=== PATIENT | female | born 1970 | race Caucasian/White ===

== ENCOUNTER 2018-01-19 19:41 | Emergency (ER) | payer MEDICAID ==
[~2018-01-19] VITALS: Ht 154.9 cm; Wt 70.3 kg
[~2018-01-19 19:41] MED LIST: VIC PO
[2018-01-19 19:44] VITALS: BP 189/107
--- NOTE | 2018-01-19 19:49 | NUR ---
patient presents to ed with R axillary abcess x2days. 4cmX4.5cm, redness, edema, heat present. Green papulae head. Copious spntanues serous drainage. 10/10 pain. A&Ox4, VSS, positioned in bed for comfort. ED MD notified of PT condition. continue to monitor
--- NOTE | 2018-01-19 19:49 | NUR ---
PT TAKEN TO BED 9
[2018-01-19] MEDS ORDERED: LIDOCAINE/PRILOCAINE 2.5% 5 GM TUBE TP ONE (20:45)
[2018-01-19] MEDS ORDERED: IBUPROFEN 600 MG TAB PO ONE (20:50)
[2018-01-19] MEDS ORDERED: LIDOCAINE/EPI 1% 1:100000 20 ML VIAL INJ ONE (22:15)
[2018-01-19] MEDS ORDERED: LIDOCAINE/EPI 2% 1:100000 20 ML VIAL INJ ONE (22:21)
[2018-01-19] MEDS ORDERED: fentaNYL 0.05 MG/ML VIAL NS ONE (22:25)
[2018-01-19] MEDS ORDERED: SULFAMETH/TRIMETH DS 800/160MG 1 TAB PO ONE (22:55)
[2018-01-19 23:20] VITALS: BP 167/90
--- NOTE | 2018-01-19 23:20 | NUR ---
Patient discharged with v/s stable. Written and verbal after care instructions given and explained. Patient alert, oriented and verbalized understanding of instructions. Ambulatory* with steady gait. All questions addressed prior to discharge. ID band removed. Patient advised to follow up with PMD. Rx of NAPROSYN, NORCO, AND BACTRIM given. Patient educated on indication of medication including possible reaction and side effects. Opportunity to ask questions provided and answered.
== END 2018-01-19 23:20 | disposition home or self-care (01) ==
LOC: MED 19:41
DX: L02.411 Cutaneous abscess of right axilla (principal); Z88.6 Allergy status to analgesic agent; Z88.5 Allergy status to narcotic agent; Z88.1 Allergy status to other antibiotic agents; Z79.899 Other long term (current) drug therapy
CPT/HCPCS: 10060; 99284; J2001; J3010

== ENCOUNTER 2018-01-21 20:58 | Inpatient (IN) | payer MEDICAID ==
[~2018-01-21] VITALS: Ht 154.9 cm; Wt 68.0 kg
[2018-01-21 21:10] VITALS: BP 176/110
[2018-01-21] MEDS ORDERED: NACL 0.9% 1,000 ML IV ONE (22:03)
[2018-01-21] MEDS ORDERED: ONDANSETRON 4 MG/2 ML VIAL IVP ONE (22:05)
[2018-01-21] MEDS ORDERED: fentaNYL 0.05 MG/ML VIAL IVP ONE (22:05)
[2018-01-21] MEDS ORDERED: KETOROLAC 30 MG/ML VIAL IVP ONE (22:05)
[2018-01-21] MEDS ORDERED: CLINDAMYCIN 600 MG in DEXTROSE 5% 50 ML IV ONE (22:05)
[2018-01-21] MEDS ORDERED: CLINDAMYCIN 600 MG/4 ML VIAL ONE (22:15)
[2018-01-21 22:40] LABS: BASOPHILS # (AUTO) 0.1 K/uL (0.00-0.22); BASOPHILS % (AUTO) 0.9 % (0.0-2.0); EOSINOPHILS # (AUTO) 0.2 K/uL (0-0.4); EOSINOPHILS % (AUTO) 2.8 % (0.0-4.0); HEMATOCRIT 30.7 % (36-48); HEMOGLOBIN 9.4 g/dL (12.0-16.0); LYMPHOCYTES # (AUTO) 1.8 K/uL (2.5-16.5); LYMPHOCYTES % (AUTO) 22.8 % (20.5-51.1); MEAN CORPUSCULAR HEMOGLOBIN 20 pg (27-31); MEAN CORPUSCULAR HGB CONC 31 g/dL (33-37); MEAN CORPUSCULAR VOLUME 66.2 fL (80-94); MONOCYTES # (AUTO) 0.6 K/uL (0.8-1.0); MONOCYTES % (AUTO) 7.2 % (1.7-9.3); NEUTROPHILS # (AUTO) 5.1 K/uL (1.8-7.7); NEUTROPHILS % (AUTO) 66.3 % (42.2-75.2); PLATELET COUNT (AUTO) 402 K/uL (140-450); RED BLOOD CELL COUNT(AUTO) 4.64 MIL/uL (4.20-5.40); RED CELL DISTRIBUTION WIDTH 17.1 % (11.6-13.7); WHITE BLOOD COUNT (AUTO) 7.7 K/uL (4.8-10.8)
[2018-01-21 22:59] LABS: ANION GAP 12.7 (8-16); CARBON DIOXIDE 28.5 mmol/L (21-32); CREATININE 0.8 mg/dL (0.6-1.3); POTASSIUM 3.2 mmol/L (3.5-5.1)
[2018-01-21 23:05] LABS: ALBUMIN 3.4 g/dL (3.4-5.0); TOTAL BILIRUBIN 0.2 mg/dL (0.0-1.0)
[2018-01-22] VITALS (8 sets, daily range): BP systolic 101–155; BP diastolic 63–90
[2018-01-22] MEDS ORDERED: LORazepam 2 MG/ML VIAL IM/IVP PRN (00:40)
[2018-01-22] MEDS ORDERED: DOCUSATE SODIUM 100 MG GELCAP PO PRN (00:40)
[2018-01-22] MEDS ORDERED: POTASSIUM CHLORIDE 40 MEQ, LIDOCAINE MPF 1% - 5 mL VIAL 25 MG in NACL 0.9% 250 ML IV ONE (00:40)
[2018-01-22] MEDS ORDERED: ZOLPIDEM 5 MG TAB PO PRN (00:40)
[2018-01-22] MEDS ORDERED: ONDANSETRON 4 MG/2 ML VIAL IM/IVP PRN (00:40)
[2018-01-22] MEDS ORDERED: KETOROLAC 30 MG/ML VIAL IVP PRN ×2 (00:40→22:05)
[2018-01-22 01:54] LABS: BILIRUBIN,URINE NEGATIVE (NEGATIVE); BLOOD, URINE NEGATIVE (NEGATIVE); COLOR,URINE YELLOW (YELLOW); LEUKOCYTE ESTERASE ,URINE NEGATIVE (NEGATIVE); NITRITE, URINE NEGATIVE (NEGATIVE); UGLUCOSE NEGATIVE (NEGATIVE)
[2018-01-22 01:58] LABS: CHOL/HDL RATIO 5.1 (1-4.5); MAGNESIUM 1.8 mg/dL (1.8-2.4); PHOSPHORUS 3.3 mg/dL (2.5-4.9); THYROID STIMULATING HORMONE 2.88 uIU/mL (0.34-3.74)
[2018-01-22 01:59] LABS: BARBITURATE, URINE NEG. ng/ml (NEG <=200); BENZODIAZEPINE, URINE NEG. ng/mL (NEG <=200); CANNABINOID, URINE NEG. ng/mL (NEG <=50); COCAINE, URINE NEG. ng/mL (NEG <=300); OPIATE, URINE NEG. ng/mL (NEG <=2000); PHENCYCLIDINE SCREEN,URINE NEG. ng/mL (NEG <=25)
[2018-01-22] MEDS ORDERED: KCL IV SCH (02:00)
[2018-01-22] MEDS ORDERED: WATER IV SCH (02:00)
[2018-01-22 02:01] LABS: APPEARANCE,URINE SLIGHTLY HAZY (CLEAR)
[2018-01-22 02:02] LABS: RBC,URINE 0-5 (RARE) /HPF (0-5); WBC,URINE 0-5 (RARE) /HPF (0-5)
[2018-01-22 02:05] LABS: PROTHROMBIN TIME 9.9 secs (10.8-13.4)
[2018-01-22] MEDS: NACL 0.9% 1,000 ML IV SCH ×2 (02:49→19:35)
[2018-01-22] MEDS ORDERED: CLINDAMYCIN 600 MG/4 ML VIAL ONE (05:55)
[2018-01-22] MEDS ORDERED: CLINDAMYCIN 600 MG in DEXTROSE 5% 50 ML IV SCH (06:00)
[2018-01-22 07:07] LABS: BASOPHILS % (AUTO) 0.3 % (0.0-2.0); EOSINOPHILS # (AUTO) 0.2 K/uL (0-0.4); EOSINOPHILS % (AUTO) 2.5 % (0.0-4.0); HEMATOCRIT 28.1 % (36-48); HEMOGLOBIN 8.6 g/dL (12.0-16.0); LYMPHOCYTES # (AUTO) 1.6 K/uL (2.5-16.5); LYMPHOCYTES % (AUTO) 21.8 % (20.5-51.1); MEAN CORPUSCULAR HEMOGLOBIN 20 pg (27-31); MEAN CORPUSCULAR HGB CONC 31 g/dL (33-37); MONOCYTES # (AUTO) 0.5 K/uL (0.8-1.0); MONOCYTES % (AUTO) 6.9 % (1.7-9.3); NEUTROPHILS % (AUTO) 68.5 % (42.2-75.2); PLATELET COUNT (AUTO) 336 K/uL (140-450); RED BLOOD CELL COUNT(AUTO) 4.26 MIL/uL (4.20-5.40); WHITE BLOOD COUNT (AUTO) 7.3 K/uL (4.8-10.8)
[2018-01-22 07:22] LABS: ANION GAP 11.8 (8-16); CARBON DIOXIDE 26.9 mmol/L (21-32); CREATININE 0.7 mg/dL (0.6-1.3); POTASSIUM 3.7 mmol/L (3.5-5.1)
[2018-01-22 07:28] LABS: MAGNESIUM 1.7 mg/dL (1.8-2.4); PHOSPHORUS 3.2 mg/dL (2.5-4.9)
[2018-01-22] MEDS: FERROUS SULFATE 325 MG TABEC PO SCH (08:36)
[2018-01-22] MEDS: ASCORBIC ACID 500 MG TAB PO SCH (08:36)
[2018-01-22] MEDS: LISINOPRIL 5 MG TAB PO SCH (08:36)
[2018-01-22] MEDS: LACTOBACILLUS RHAMNOSUS GG 1 EACH CAP PO SCH (08:37)
[2018-01-22] MEDS: CLINDAMYCIN PHOS 600MG/D5W PM 50 ML IV SCH ×3 (12:49→23:37)
[2018-01-22] MEDS ORDERED: MAGNESIUM OXIDE 400 MG TAB GT SCH (16:00)
[2018-01-22] MEDS ORDERED: LIDOCAINE/EPI MPF 1%1:200000 30 ML VIAL INJ ONE ×2 (16:58→21:28)
[2018-01-22] MEDS ORDERED: BUPIVACAINE-MPF 0.25% 30 ML VIAL INJ ONE (16:58)
[2018-01-22] MEDS ORDERED: BUPIVACAINE-MPF/EPI 0.25% 30 ML VIAL INJ ONE (21:28)
[2018-01-22] MEDS ORDERED: PROPOFOL 200 MG/20 ML VIAL IV ONE (21:52)
[2018-01-22] MEDS ORDERED: ONDANSETRON 4 MG/2 ML VIAL ONE (21:52)
[2018-01-22] MEDS ORDERED: MIDAZOLAM 2 MG/2 ML VIAL ONE (22:01)
[2018-01-22] MEDS ORDERED: fentaNYL 0.05 MG/ML VIAL ONE (22:01)
[2018-01-22] MEDS ORDERED: HYDROcodone/APAP 5/325 MG 1 TAB TAB PO PRN (22:35)
[2018-01-22] MEDS ORDERED: ONDANSETRON 4 MG/2 ML VIAL IV PRN (22:35)
[2018-01-22] MEDS: HYDROmorphone 1 MG/ML AMP IVP PRN (23:19)
[2018-01-23 00:05] VITALS: BP 109/64
[2018-01-23 01:05] VITALS: BP 123/73
[2018-01-23 03:56] VITALS: BP 120/67
[2018-01-23] MEDS: CLINDAMYCIN PHOS 600MG/D5W PM 50 ML IV SCH ×4 (05:25→23:47)
[2018-01-23] MEDS: HYDROmorphone 1 MG/ML AMP IVP PRN ×3 (06:35→23:49)
[2018-01-23 08:00] VITALS: BP 114/63
[2018-01-23] MEDS: FERROUS SULFATE 325 MG TABEC PO SCH (08:11)
[2018-01-23] MEDS: LACTOBACILLUS RHAMNOSUS GG 1 EACH CAP PO SCH (08:12)
[2018-01-23] MEDS: LISINOPRIL 5 MG TAB PO SCH (08:12)
[2018-01-23] MEDS: ASCORBIC ACID 500 MG TAB PO SCH (08:12)
[2018-01-23 08:13] LABS: BASOPHILS % (AUTO) 0.1 % (0.0-2.0); EOSINOPHILS # (AUTO) 0.1 K/uL (0-0.4); EOSINOPHILS % (AUTO) 2.4 % (0.0-4.0); HEMATOCRIT 29.1 % (36-48); HEMOGLOBIN 8.9 g/dL (12.0-16.0); LYMPHOCYTES # (AUTO) 1.6 K/uL (2.5-16.5); MEAN CORPUSCULAR HEMOGLOBIN 21 pg (27-31); MEAN CORPUSCULAR HGB CONC 31 g/dL (33-37); MEAN CORPUSCULAR VOLUME 66.8 fL (80-94); MONOCYTES # (AUTO) 0.2 K/uL (0.8-1.0); MONOCYTES % (AUTO) 4.7 % (1.7-9.3); PLATELET COUNT (AUTO) 329 K/uL (140-450); RED BLOOD CELL COUNT(AUTO) 4.35 MIL/uL (4.20-5.40); RED CELL DISTRIBUTION WIDTH 17.2 % (11.6-13.7); WHITE BLOOD COUNT (AUTO) 4.9 K/uL (4.8-10.8)
[2018-01-23 08:45] LABS: CARBON DIOXIDE 28.6 mmol/L (21-32); CREATININE 0.8 mg/dL (0.6-1.3); POTASSIUM 3.6 mmol/L (3.5-5.1)
[2018-01-23 08:57] LABS: MAGNESIUM 1.9 mg/dL (1.8-2.4); PHOSPHORUS 3.1 mg/dL (2.5-4.9)
[2018-01-23 09:10] LABS: NEUTROPHILS % (AUTO) 61.3 % (42.2-75.2)
[2018-01-23 09:11] LABS: LYMPHOCYTES % (AUTO) 31.5 % (20.5-51.1)
[2018-01-23] MEDS: NACL 0.9% 1,000 ML IV SCH (10:38)
[2018-01-23] MEDS: MORPHINE SULFATE 4 MG/ML SYR IV PRN ×2 (11:52→16:43)
[2018-01-23] MEDS ORDERED: MORPHINE SULFATE 2 MG/ML SYR IVP SCH (12:00)
[2018-01-23 16:00] VITALS: BP 122/50
[2018-01-23 23:45] VITALS: BP 131/71
[2018-01-24] MEDS: NACL 0.9% 1,000 ML IV SCH ×2 (03:00→05:50)
[2018-01-24] MEDS: MORPHINE SULFATE 4 MG/ML SYR IV PRN ×2 (04:25→11:05)
[2018-01-24] MEDS: CLINDAMYCIN PHOS 600MG/D5W PM 50 ML IV SCH ×4 (05:51→23:42)
[2018-01-24 07:13] LABS: BASOPHILS % (AUTO) 0.2 % (0.0-2.0); EOSINOPHILS # (AUTO) 0.1 K/uL (0-0.4); EOSINOPHILS % (AUTO) 2.5 % (0.0-4.0); HEMATOCRIT 29.1 % (36-48); LYMPHOCYTES # (AUTO) 1.8 K/uL (2.5-16.5); LYMPHOCYTES % (AUTO) 35.5 % (20.5-51.1); MEAN CORPUSCULAR HEMOGLOBIN 21 pg (27-31); MEAN CORPUSCULAR HGB CONC 31 g/dL (33-37); MEAN CORPUSCULAR VOLUME 67.1 fL (80-94); MONOCYTES # (AUTO) 0.3 K/uL (0.8-1.0); MONOCYTES % (AUTO) 5.3 % (1.7-9.3); NEUTROPHILS # (AUTO) 2.8 K/uL (1.8-7.7); NEUTROPHILS % (AUTO) 56.5 % (42.2-75.2); PLATELET COUNT (AUTO) 302 K/uL (140-450); RED BLOOD CELL COUNT(AUTO) 4.34 MIL/uL (4.20-5.40); RED CELL DISTRIBUTION WIDTH 17.4 % (11.6-13.7)
[2018-01-24] MEDS ORDERED: VANCOMYCIN PER PHARMACY MC PRN ×2 (07:25→10:25)
[2018-01-24 07:40] LABS: CARBON DIOXIDE 28.4 mmol/L (21-32); CREATININE 0.7 mg/dL (0.6-1.3); POTASSIUM 3.4 mmol/L (3.5-5.1)
[2018-01-24 07:48] LABS: MAGNESIUM 1.8 mg/dL (1.8-2.4); PHOSPHORUS 3.4 mg/dL (2.5-4.9)
[2018-01-24 08:00] VITALS: BP 147/85
[2018-01-24] MEDS: HYDROmorphone 1 MG/ML AMP IVP PRN (08:33)
[2018-01-24] MEDS: FERROUS SULFATE 325 MG TABEC PO SCH (08:39)
[2018-01-24] MEDS: ASCORBIC ACID 500 MG TAB PO SCH (08:39)
[2018-01-24] MEDS: LACTOBACILLUS RHAMNOSUS GG 1 EACH CAP PO SCH (08:39)
[2018-01-24] MEDS: LISINOPRIL 5 MG TAB PO SCH (08:39)
[2018-01-24] MEDS: VANCOMYCIN 1GM/DEXT 5% PREMIX 200 ML IV SCH ×2 (08:51→20:42)
[2018-01-24] MEDS ORDERED: POTASSIUM CHLORIDE 20% 40 MEQ/15 ML UDC PO SCH (11:00)
[2018-01-24] MEDS: HYDROcodone/APAP 10/325 MG 1 TAB TAB PO SCH ×4 (12:29→23:14)
[2018-01-24 16:00] VITALS: BP 151/87
[2018-01-25] VITALS: BP 152/82
[2018-01-25] MEDS: HYDROcodone/APAP 10/325 MG 1 TAB TAB PO SCH ×2 (04:04→08:53)
[2018-01-25] MEDS: CLINDAMYCIN PHOS 600MG/D5W PM 50 ML IV SCH ×3 (05:30→18:30)
[2018-01-25 06:59] LABS: BASOPHILS % (AUTO) 0.4 % (0.0-2.0); EOSINOPHILS # (AUTO) 0.2 K/uL (0-0.4); EOSINOPHILS % (AUTO) 3.1 % (0.0-4.0); HEMATOCRIT 29.6 % (36-48); HEMOGLOBIN 9.1 g/dL (12.0-16.0); LYMPHOCYTES # (AUTO) 1.7 K/uL (2.5-16.5); LYMPHOCYTES % (AUTO) 28.5 % (20.5-51.1); MEAN CORPUSCULAR HEMOGLOBIN 21 pg (27-31); MEAN CORPUSCULAR HGB CONC 31 g/dL (33-37); MONOCYTES # (AUTO) 0.4 K/uL (0.8-1.0); NEUTROPHILS # (AUTO) 3.7 K/uL (1.8-7.7); PLATELET COUNT (AUTO) 334 K/uL (140-450); RED BLOOD CELL COUNT(AUTO) 4.42 MIL/uL (4.20-5.40); RED CELL DISTRIBUTION WIDTH 17.5 % (11.6-13.7); WHITE BLOOD COUNT (AUTO) 5.9 K/uL (4.8-10.8)
[2018-01-25 07:09] LABS: ANION GAP 7.8 (8-16); CARBON DIOXIDE 29.8 mmol/L (21-32); CREATININE 0.7 mg/dL (0.6-1.3); POTASSIUM 3.6 mmol/L (3.5-5.1)
[2018-01-25 07:17] LABS: MAGNESIUM 1.6 mg/dL (1.8-2.4); PHOSPHORUS 3.4 mg/dL (2.5-4.9)
[2018-01-25 08:00] VITALS: BP 157/86
[2018-01-25] MEDS ORDERED: LACT10CA1 PO (08:45)
[2018-01-25] MEDS ORDERED: DOCU-299 PO (08:45)
[2018-01-25] MEDS ORDERED: ACET-5629 PO (08:45)
[2018-01-25] MEDS ORDERED: CLIN300C2 PO (08:45)
[2018-01-25] MEDS: LACTOBACILLUS RHAMNOSUS GG 1 EACH CAP PO SCH (08:52)
[2018-01-25] MEDS: LISINOPRIL 5 MG TAB PO SCH (08:52)
[2018-01-25] MEDS: FERROUS SULFATE 325 MG TABEC PO SCH (08:53)
[2018-01-25] MEDS: ASCORBIC ACID 500 MG TAB PO SCH (08:53)
[2018-01-25] MEDS: VANCOMYCIN 1GM/DEXT 5% PREMIX 200 ML IV SCH (08:54)
[2018-01-25] MEDS ORDERED: MAGNESIUM OXIDE 400 MG TAB PO SCH (10:00)
[2018-01-25] MEDS: NACL 0.9% 1,000 ML IV SCH (12:20)
[2018-01-25] MEDS ORDERED: SKINTEGRITY HYDROGEL TP SCH (15:00)
[2018-01-25] MEDS ORDERED: MORPHINE SULFATE 2 MG/ML SYR IVP SCH (15:00)
[2018-01-25 16:00] VITALS: BP 145/82
== END 2018-01-25 20:10 | disposition home health service (06) | DRG 383 ==
LOC: MED 20:58 → MTU 01-22 00:40
PROVIDERS: ADMIT General Practice; ATTEND General Practice
PROC: 0JBD0ZZ Excision of Right Upper Arm Subcutaneous Tissue and Fascia, Open Approach (ICD-10-PCS; 2018-01-22)
PROC: 0H9T0ZZ Drainage of Right Breast, Open Approach (ICD-10-PCS; principal; 2018-01-22 16:30)
DX: L02.411 Cutaneous abscess of right axilla (principal); E83.42 Hypomagnesemia; E83.51 Hypocalcemia; F12.90 Cannabis use, unspecified, uncomplicated; D50.9 Iron deficiency anemia, unspecified; E66.9 Obesity, unspecified; L03.111 Cellulitis of right axilla; N61.1 Abscess of the breast and nipple; E87.6 Hypokalemia; I10 Essential (primary) hypertension; E78.1 Pure hyperglyceridemia; G40.909 Epilepsy, unspecified, not intractable, without status epilepticus; F15.10 Other stimulant abuse, uncomplicated; J45.909 Unspecified asthma, uncomplicated; Z68.28 Body mass index [BMI] 28.0-28.9, adult; Z71.3 Dietary counseling and surveillance; Z88.6 Allergy status to analgesic agent; Z88.0 Allergy status to penicillin; Z86.73 Personal history of transient ischemic attack (TIA), and cerebral infarction without residual deficits; Z98.51 Tubal ligation status
CPT/HCPCS: 36415; 71045; 76881; 80048; 80053; 80202; 80305; 81001; 81025; 82607; 82728; 82746; 83036; 83540; 83605; 83690; 83735; 84100; 84134; 84443; 84703; 85025; 85045; 85610; 85730; 87070; 87075; 87081; 87186; 87205; 96365; 96375; 99285; A6248; J1170; J1644; J1885; J2001; J2250; J2270; J2405; J2704; J3010; J3370; J3480; J3490; J7030; J7060; Q0092

== ENCOUNTER 2018-01-27 20:56 | Emergency (ER) | payer MEDICAID ==
[~2018-01-27] VITALS: Ht 154.9 cm; Wt 68.0 kg
[~2018-01-27 20:56] MED LIST changes: +ACET-5629 PO; +CLIN300C2 PO; +DOCU-299 PO; +LACT10CA1 PO; -VIC PO
[2018-01-27 21:00] VITALS: BP 178/101
[2018-01-27 23:35] VITALS: BP 167/94
== END 2018-01-27 23:35 | disposition home or self-care (01) ==
LOC: MED 20:56
DX: Z48.01 Encounter for change or removal of surgical wound dressing (principal); E11.9 Type 2 diabetes mellitus without complications; I10 Essential (primary) hypertension; Z86.73 Personal history of transient ischemic attack (TIA), and cerebral infarction without residual deficits; Z88.1 Allergy status to other antibiotic agents; Z88.6 Allergy status to analgesic agent; Z88.5 Allergy status to narcotic agent; Z79.899 Other long term (current) drug therapy
CPT/HCPCS: 99283

== ENCOUNTER 2018-02-06 14:39 | Emergency (ER) | payer MEDICAID ==
[~2018-02-06] VITALS: Ht 152.4 cm; Wt 68.0 kg
[2018-02-06 15:02] VITALS: BP 178/101
--- NOTE | 2018-02-06 15:03 | NUR ---
PT AMBULATES TO BED 1
--- NOTE | 2018-02-06 15:05 | NUR ---
47Y/F BIB SELF FOR RECHECK/REPACKING OF RT AXILLARY ABSCESS WITH SOME DRAINAGE AND SLIGHT PAIN; I&D ON 01/22/2018, RECHECKED ON 01/27/2018. PT IS AAOX4, VSS AT THIS TIME, BED DOWN, BEDRAIL UP X 1, ER MD AWARE AND NOTIFIED OF PT STATUS. HX; HTN RX; DENIES
--- NOTE | 2018-02-06 16:17 | NUR ---
Patient discharged with v/s stable. Written and verbal after care instructions given and explained. Patient verbalized understanding. Ambulatory with steady gait. All questions addressed prior to discharge. Advised to follow up with PMD.
[2018-02-06 16:18] VITALS: BP 169/94
== END 2018-02-06 16:17 | disposition home or self-care (01) ==
LOC: MED 14:39
DX: Z48.01 Encounter for change or removal of surgical wound dressing (principal); I10 Essential (primary) hypertension; Z88.1 Allergy status to other antibiotic agents; Z88.6 Allergy status to analgesic agent; Z88.5 Allergy status to narcotic agent; Z79.899 Other long term (current) drug therapy
CPT/HCPCS: 99281

== ENCOUNTER 2018-02-14 12:51 | Emergency (ER) | payer MEDICAID ==
[~2018-02-14] VITALS: Ht 152.4 cm; Wt 68.0 kg
[2018-02-14 12:53] VITALS: BP 208/121
--- NOTE | 2018-02-14 12:57 | NUR ---
PATIENT AMBULATED TO ER BED 12.
--- NOTE | 2018-02-14 13:10 | NUR ---
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 DENIES /V/D; SKIN IS PINK/WARM/DRY; AAOX4 WITH EVEN AND STEADY GAIT; LUNGS CLEAR BL; HR EVEN AND REGULAR; PT DENIES ANY FEVER, CP, SOB, OR COUGH AT THIS TIME; PATIENT STATES PAIN OF 6/10 AT THIS TIME; VSS; PATIENT POSITIONED FOR COMFORT; HOB ELEVATED; BEDRAILS UP X2; BED DOWN. ER MD MADE AWARE OF PT STATUS.
--- NOTE | 2018-02-14 13:20 | NUR ---
UABLE TO VOID FOR SAMPLE AT THIS TIME---AWAITS MD HENDERSON
[2018-02-14] MEDS ORDERED: cloNIDine 0.1 MG TAB PO ONE (14:05)
--- NOTE | 2018-02-14 14:22 | NUR ---
REPEAT B/P IMPROVED--MD NOTIFED, OKAYED FOR 0.1MG CATAPRES AND HOLD LISINOPRIL ORDER
--- NOTE | 2018-02-14 14:23 | NUR ---
PT TO CT SCAN
[2018-02-14 14:27] LABS: BASOPHILS % (AUTO) 0.8 % (0.0-2.0); EOSINOPHILS # (AUTO) 0.2 K/uL (0-0.4); EOSINOPHILS % (AUTO) 4.9 % (0.0-4.0); HEMATOCRIT 32.1 % (36-48); HEMOGLOBIN 9.9 g/dL (12.0-16.0); LYMPHOCYTES # (AUTO) 1.6 K/uL (2.5-16.5); LYMPHOCYTES % (AUTO) 34.7 % (20.5-51.1); MEAN CORPUSCULAR HEMOGLOBIN 21 pg (27-31); MEAN CORPUSCULAR HGB CONC 31 g/dL (33-37); MEAN CORPUSCULAR VOLUME 67.2 fL (80-94); MONOCYTES # (AUTO) 0.4 K/uL (0.8-1.0); MONOCYTES % (AUTO) 8.1 % (1.7-9.3); NEUTROPHILS # (AUTO) 2.4 K/uL (1.8-7.7); NEUTROPHILS % (AUTO) 51.5 % (42.2-75.2); PLATELET COUNT (AUTO) 306 K/uL (140-450); RED BLOOD CELL COUNT(AUTO) 4.78 MIL/uL (4.20-5.40); RED CELL DISTRIBUTION WIDTH 17.9 % (11.6-13.7); WHITE BLOOD COUNT (AUTO) 4.7 K/uL (4.8-10.8)
[2018-02-14 14:41] LABS: ANION GAP 8.4 (8-16); CARBON DIOXIDE 30.7 mmol/L (21-32); CREATININE 0.7 mg/dL (0.6-1.3); POTASSIUM 3.1 mmol/L (3.5-5.1)
[2018-02-14 14:47] LABS: ALBUMIN 3.4 g/dL (3.4-5.0); TOTAL BILIRUBIN 0.3 mg/dL (0.0-1.0)
[2018-02-14 14:57] LABS: PROTHROMBIN TIME 10.3 secs (10.8-13.4)
--- NOTE | 2018-02-14 15:40 | NUR ---
ENCOURAGED TO PROVIDE URINE SAMPLE---PT STATES UNABLE TO VOID RESTING LAYING ON LEFT SIDE NO GRIMACE NO BRANDON AT THIS TIME WILL CONTINUE TO OBSERVE FOR DIZZINESS OR CABRERA
[2018-02-14] MEDS ORDERED: POTASSIUM CHLORIDE 10 MEQ TABER PO ONE (15:55)
[2018-02-14 16:42] VITALS: BP 135/79
--- NOTE | 2018-02-14 16:43 | NUR ---
Patient discharged with v/s stable. Written and verbal after care instructions given and explained. Patient alert, oriented and verbalized understanding of instructions. Ambulatory with steady gait. All questions addressed prior to discharge. ID band removed. Patient advised to follow up with PMD. Rx of CLONIDINE given. Patient educated on indication of medication including possible reaction and side effects. Opportunity to ask questions provided and answered.
[2018-02-15] MEDS ORDERED: LISINOPRIL 20 MG TAB PO ONE (09:00)
== END 2018-02-14 16:43 | disposition home or self-care (01) ==
LOC: MED 12:51
DX: D33.7 Benign neoplasm of other specified parts of central nervous system (principal); I10 Essential (primary) hypertension; Z88.6 Allergy status to analgesic agent; Z88.1 Allergy status to other antibiotic agents; Z88.5 Allergy status to narcotic agent
CPT/HCPCS: 36415; 70450; 71045; 80053; 82150; 83690; 83735; 84484; 84703; 85025; 85610; 85730; 93005; 99284; Q0092; 99285

== ENCOUNTER 2018-04-01 00:44 | Emergency (ER) | payer MEDICAID ==
[~2018-04-01] VITALS: Ht 152.4 cm; Wt 68.0 kg
[2018-04-01 00:47] VITALS: BP 170/96
--- NOTE | 2018-04-01 00:47 | NUR ---
47/F PATIENT PRESENTS TO ER WITH CC DIZZINESS, NAUSEA, VOMITTING FOR 3 DAYS. REPORTS MAJOR DIZZINESS ALL DAY AND HYPERTENSION. SBP IN 200S. AO X4. PERSON, PLACE, TIME, LOCATION. FOLLOWS COMMANDS. ABLE TO VERBALIZE NEEDS. HX OF BRAIN TUMOR. BP 170/76 PULSE 83. 100% ROOM AIR. BED IN LOWEST POSITION. MD MADE AWARE. WILL CONTINUE TO MONITOR.
--- NOTE | 2018-04-01 00:47 | NUR ---
PT TAKEN TO BED 4
[2018-04-01] MEDS ORDERED: KETOROLAC 60 MG/2 ML VIAL IM ONE (01:00)
[2018-04-01] MEDS ORDERED: ONDANSETRON 4 MG/2 ML VIAL IM ONE (01:00)
--- NOTE | 2018-04-01 03:00 | NUR ---
Patient discharged with v/s stable. Written and verbal after care instructions given and explained. Patient alert, oriented and verbalized understanding of instructions. Ambulatory with steady gait. All questions addressed prior to discharge. ID band removed. Patient advised to follow up with PMD. Rx of ZOFRAN, MOTRIN, AND TRAMADOL given. Patient educated on indication of medication including possible reaction and side effects. Opportunity to ask questions provided and answered.
[2018-04-01 03:06] VITALS: BP 164/90
== END 2018-04-01 03:00 | disposition home or self-care (01) ==
LOC: MED 00:44
DX: R51 Headache (principal); R42 Dizziness and giddiness; R11.10 Vomiting, unspecified; I10 Essential (primary) hypertension; Z98.890 Other specified postprocedural states; Z98.51 Tubal ligation status; Z79.2 Long term (current) use of antibiotics; Z79.899 Other long term (current) drug therapy; Z88.0 Allergy status to penicillin; Z88.6 Allergy status to analgesic agent; Z88.5 Allergy status to narcotic agent
CPT/HCPCS: 70450; 81025; 96372; 99284; J1885; J2405

== ENCOUNTER 2018-05-22 10:37 | Emergency (ER) | payer MEDICAID ==
[~2018-05-22] VITALS: Ht 157.5 cm; Wt 81.2 kg
[2018-05-22] MEDS ORDERED: CARV3.12 PO (10:49)
[2018-05-22] MEDS ORDERED: LISI-420 PO (10:49)
[2018-05-22] MEDS ORDERED: CLON0.2T43 PO (10:49)
[2018-05-22 10:50] VITALS: BP 191/111
--- NOTE | 2018-05-22 10:50 | NUR ---
PT AMB TO ER BED 11
[2018-05-22] MEDS ORDERED: METOPROLOL 5 MG/5 ML VIAL IVP ONE (11:00)
[2018-05-22] MEDS ORDERED: hydrALAZINE 20 MG/ML VIAL IVP ONE (11:00)
--- NOTE | 2018-05-22 11:04 | NUR ---
47 YO F BIB FAMILY MEMBER C/O DIZZINESS AND VAG BLEEDING X 1 DAY S/P FALL IN BATHROOM 2 DAYS AGO. PER PT SHE IS 12 WEEKS LMP 02/13/18. C/O ACHING CABRERA 10/08. MEDICAL HX INCLUDE HTN,SEIZURES AND BRAIN TUMOR. DUNCAN LING GASABRINA, AAOX4, NO ALOC. PATIENT VERBALIZED " I DID NOT TAKE MY BLOOD PRESSURE MEDICATION YESTERDAY." PLACED IN BED AND CONNECTED TO THE MONITOR. WAITING FOR ER MD FOR EVALUATION.
[2018-05-22 11:25] LABS: BASOPHILS % (AUTO) 0.6 % (0.0-2.0); EOSINOPHILS # (AUTO) 0.1 K/uL (0-0.4); EOSINOPHILS % (AUTO) 3.8 % (0.0-4.0); HEMATOCRIT 34.9 % (36-48); LYMPHOCYTES # (AUTO) 1.3 K/uL (2.5-16.5); LYMPHOCYTES % (AUTO) 31.7 % (20.5-51.1); MEAN CORPUSCULAR HEMOGLOBIN 22 pg (27-31); MEAN CORPUSCULAR HGB CONC 32 g/dL (33-37); MEAN CORPUSCULAR VOLUME 69.8 fL (80-94); MONOCYTES # (AUTO) 0.3 K/uL (0.8-1.0); MONOCYTES % (AUTO) 8.7 % (1.7-9.3); NEUTROPHILS # (AUTO) 2.2 K/uL (1.8-7.7); NEUTROPHILS % (AUTO) 55.2 % (42.2-75.2); PLATELET COUNT (AUTO) 285 K/uL (140-450); RED CELL DISTRIBUTION WIDTH 19.6 % (11.6-13.7)
[2018-05-22 11:40] LABS: ANION GAP 12.7 (8-16); CARBON DIOXIDE 28.2 mmol/L (21-32); POTASSIUM 3.9 mmol/L (3.5-5.1)
[2018-05-22 11:46] LABS: ALBUMIN 3.3 g/dL (3.4-5.0); TOTAL BILIRUBIN 0.2 mg/dL (0.0-1.0)
--- NOTE | 2018-05-22 11:47 | NUR ---
US AT BEDSIDE.
--- NOTE | 2018-05-22 12:15 | NUR ---
DR. ARZOLA AT BEDSIDE EVALUTING PATIENT.
--- NOTE | 2018-05-22 12:28 | NUR ---
PATIENT TAKEN FOR CT SCAN VIA GURNEY BY GOLF COURSE MECHANIC GIDEON.
[2018-05-22] MEDS ORDERED: diphenhydrAMINE 50 MG/ML VIAL IVP ONE (13:00)
[2018-05-22 13:57] VITALS: BP 123/65
--- NOTE | 2018-05-22 13:57 | NUR ---
Patient discharged with v/s stable. Written and verbal after care instructions given and explained. Patient alert, oriented and verbalized understanding of instructions. Ambulatory with steady gait. All questions addressed prior to discharge. ID band removed. Patient advised to follow up with PMD. Rx of LISINOPRIL& CARVEDILOL given. Patient educated on indication of medication including possible reaction and side effects. Opportunity to ask questions provided and answered.
[2018-05-22 14:49] LABS: APPEARANCE,URINE CLEAR (CLEAR); BILIRUBIN,URINE NEGATIVE (NEGATIVE); BLOOD, URINE 3+ (NEGATIVE); COLOR,URINE YELLOW (YELLOW); LEUKOCYTE ESTERASE ,URINE TRACE (NEGATIVE); NITRITE, URINE NEGATIVE (NEGATIVE); UGLUCOSE NEGATIVE (NEGATIVE)
[2018-05-22 15:18] LABS: WBC,URINE 0-5 /HPF (0-5)
== END 2018-05-22 13:57 | disposition home or self-care (01) ==
LOC: MED 10:37
DX: O10.911 Unspecified pre-existing hypertension complicating pregnancy, first trimester (principal); Z3A.12 12 weeks gestation of pregnancy; Z88.0 Allergy status to penicillin; Z88.6 Allergy status to analgesic agent; Z88.5 Allergy status to narcotic agent; Z79.899 Other long term (current) drug therapy; Z85.841 Personal history of malignant neoplasm of brain
CPT/HCPCS: 36415; 70450; 76801; 80053; 81001; 81025; 84702; 85025; 86900; 86901; 96374; 96375; 99284; J0360; J1200; J3490; Q0092

== ENCOUNTER 2018-12-26 16:18 | Inpatient (IN) | payer MEDICAID ==
[~2018-12-26] VITALS: Ht 152.4 cm; Wt 77.1 kg
[~2018-12-26 16:18] MED LIST changes: -ACET-5629 PO; +CARV3.12 PO; -CLIN300C2 PO; +CLON0.2T43 PO; -DOCU-299 PO; -LACT10CA1 PO; +LISI-420 PO
[2018-12-26 16:20] VITALS: BP 163/92
--- NOTE | 2018-12-26 16:45 | NUR ---
PT BIB SELF C/O CP X 2 DAYS. PT REPORTS INTERMITENT SHARP CP THAT RADIATES TO LT ARM NUMBNESS AT 8/10. PT REPORTS WHEN CP COMES SHE HAS TO "TAKE DEEP BREATHS TO CATCH BREATH". S1 AND S2 SOUNDS PRESENT, NO S3 OR S4, CATAPULT AND ARRESTING GEAR OFFICER SHOWS NSR, NO JUGULAR VEIN DISTENTION, NO EDEMA PRESENT, CAP REFIL <3 SEC. RR EVEN AND NON LABORED, BREATH SOUNDS CLEAR THROUGHOUT, O2 SAT AT 98. + NAUSEA. VSS. SE TO SEE PT. Addendum: 12/26/18 at 1650 by LOLI MEDHX:CVA, HTN, BRAIN TUMOR RX:LISINOPRIL, CARVIDOLOL
[2018-12-26] MEDS ORDERED: LORazepam 2 MG/ML VIAL IVP ONE (17:10)
--- NOTE | 2018-12-26 17:27 | NUR ---
LAB AT BEDSIDE
--- NOTE | 2018-12-26 17:45 | NUR ---
PT IN IMAGING AT THIS TIME
[2018-12-26 17:58] LABS: BASOPHILS % (AUTO) 0.4 % (0.0-2.0); EOSINOPHILS # (AUTO) 0.2 K/uL (0-0.4); EOSINOPHILS % (AUTO) 2.8 % (0.0-4.0); HEMOGLOBIN 10.6 g/dL (12.0-16.0); LYMPHOCYTES # (AUTO) 1.5 K/uL (2.5-16.5); LYMPHOCYTES % (AUTO) 23.4 % (20.5-51.1); MEAN CORPUSCULAR HEMOGLOBIN 24 pg (27-31); MEAN CORPUSCULAR HGB CONC 32 g/dL (33-37); MEAN CORPUSCULAR VOLUME 74.6 fL (80-94); MONOCYTES # (AUTO) 0.5 K/uL (0.8-1.0); MONOCYTES % (AUTO) 7.3 % (1.7-9.3); NEUTROPHILS # (AUTO) 4.3 K/uL (1.8-7.7); NEUTROPHILS % (AUTO) 66.1 % (42.2-75.2); PLATELET COUNT (AUTO) 309 K/uL (140-450); RED BLOOD CELL COUNT(AUTO) 4.43 MIL/uL (4.20-5.40); RED CELL DISTRIBUTION WIDTH 16.8 % (11.6-13.7); WHITE BLOOD COUNT (AUTO) 6.5 K/uL (4.8-10.8)
[2018-12-26 18:07] LABS: ANION GAP 11.6 (8-16); CARBON DIOXIDE 29.7 mmol/L (21-32); CREATININE 0.8 mg/dL (0.6-1.3); POTASSIUM 3.3 mmol/L (3.5-5.1); PROTHROMBIN TIME 9.3 secs (10.8-13.4)
[2018-12-26 18:12] LABS: ALBUMIN 3.7 g/dL (3.4-5.0); TOTAL BILIRUBIN 0.3 mg/dL (0.0-1.0)
[2018-12-26] MEDS ORDERED: ONDANSETRON 4 MG/2 ML VIAL IM/IVP PRN (18:50)
[2018-12-26 19:24] LABS: APPEARANCE,URINE SL CLOUDY (CLEAR); BILIRUBIN,URINE NEGATIVE (NEGATIVE); BLOOD, URINE 2+ (NEGATIVE); COLOR,URINE YELLOW (YELLOW); LEUKOCYTE ESTERASE ,URINE NEGATIVE (NEGATIVE); NITRITE, URINE NEGATIVE (NEGATIVE); PH,URINE 5.5 (5.0-9.0); UGLUCOSE NEGATIVE (NEGATIVE)
[2018-12-26 19:26] LABS: BARBITURATE, URINE NEG. ng/ml (NEG <=200); BENZODIAZEPINE, URINE NEG. ng/mL (NEG <=200); CANNABINOID, URINE NEG. ng/mL (NEG <=50); COCAINE, URINE NEG. ng/mL (NEG <=300); OPIATE, URINE NEG. ng/mL (NEG <=2000); PHENCYCLIDINE SCREEN,URINE NEG. ng/mL (NEG <=25)
--- NOTE | 2018-12-26 19:30 | NUR ---
PT APPEARS TO BE IN NO DISTRESS AT THIS TIME. PT VSS. PT STILL C/O CHEST PAIN AT THIS TIME. WAITING FOR ROOM UPSTAIRS.
[2018-12-26 19:37] LABS: CHOL/HDL RATIO 7.7 (1-4.5); FREE T4 (FREE THYROXINE) 0.79 ng/dL (0.76-1.46); MAGNESIUM 1.8 mg/dL (1.8-2.4); PHOSPHORUS 3.3 mg/dL (2.5-4.9); THYROID STIMULATING HORMONE 0.77 uIU/mL (0.34-3.74)
[2018-12-26 19:52] LABS: WBC,URINE NONE SEEN /HPF (0-5)
[2018-12-26 19:53] LABS: URIC ACID CRYSTALS,URINE 0-10 /HPF (None Seen)
[2018-12-26] MEDS ORDERED: ORE25 PO (20:18)
[2018-12-26 20:30] VITALS: BP 151/91
[2018-12-26] MEDS ORDERED: LORazepam 2 MG/ML VIAL IVP PRN (20:30)
--- NOTE | 2018-12-26 20:30 | NUR ---
Patient arrived in unit via rney, accompanied by KNIFE MACHINE OPERATOR; patient able to ambulate from bed to [facility] without assistance. Patient A/Ox4, able to make needs known, [place] speaking, ambulatory. Introduced self, updated board, oriented patient to room and hospital environment. Chief complaint is chest pain, DX is chest pain. No SOB or distress noted, on room air. IV site noted on right antecubital, 20 gauge, running IVF at 60mL/hr. Vitals upon admission are as follows: BP 151/91, HR 73, RR 16, Temp 97.9, O2Sat 97% on room air. Skin intact. Bed in the lowest position, call light within reach. Initial assessment done. Will continue to monitor.
[2018-12-26] MEDS ORDERED: POTASSIUM CHLORIDE 10 MEQ TABER PO SCH (20:34)
[2018-12-26] MEDS: NACL 0.9% 1,000 ML IV SCH (20:41)
[2018-12-26] MEDS: CARVEDILOL 3.125 MG TAB PO SCH (20:42)
--- NOTE | 2018-12-26 20:45 | NUR ---
Patient will be admitted to care of [facility]. Admited to TELE. Will go to room 106A Belongings list completed. Report to RANJAN THOMAS
--- NOTE | 2018-12-26 22:10 | NUR ---
Checks made; no SOB or distress noted. Patient talking with significant other, Ray.
[2018-12-26] MEDS: KETOROLAC 15 MG/ML VIAL IVP PRN (23:43)
[2018-12-27] VITALS: BP 134/81
--- NOTE | 2018-12-27 00:03 | NUR ---
Vitals taken, no distress noted. Patient reported pain; administered PRN pain med as ordered and per pain scale.
--- NOTE | 2018-12-27 01:31 | NUR ---
Rounds done; patient asleep, visible chest rise and fall noted.
--- NOTE | 2018-12-27 03:45 | NUR ---
Vitals taken, no distress noted.
[2018-12-27 04:00] VITALS: BP 130/75
--- NOTE | 2018-12-27 05:05 | NUR ---
Checks made; patient resting comfortably, visible chest rise and fall noted.
[2018-12-27 06:10] LABS: CREATININE 0.7 mg/dL (0.6-1.3); POTASSIUM 4.1 mmol/L (3.5-5.1)
--- NOTE | 2018-12-27 06:20 | NUR ---
Vitals stable, due meds given. Will endorse to AM shift RN for continuity of care.
[2018-12-27 06:30] LABS: ANION GAP 12.7 (8-16); CARBON DIOXIDE 26.4 mmol/L (21-32)
[2018-12-27 06:31] LABS: BASOPHILS % (AUTO) 0.5 % (0.0-2.0); EOSINOPHILS # (AUTO) 0.3 K/uL (0-0.4); EOSINOPHILS % (AUTO) 4.6 % (0.0-4.0); HEMATOCRIT 31.3 % (36-48); LYMPHOCYTES # (AUTO) 2.1 K/uL (2.5-16.5); LYMPHOCYTES % (AUTO) 36.2 % (20.5-51.1); MEAN CORPUSCULAR HEMOGLOBIN 24 pg (27-31); MEAN CORPUSCULAR HGB CONC 32 g/dL (33-37); MEAN CORPUSCULAR VOLUME 74.4 fL (80-94); MONOCYTES # (AUTO) 0.5 K/uL (0.8-1.0); MONOCYTES % (AUTO) 8.5 % (1.7-9.3); NEUTROPHILS # (AUTO) 2.9 K/uL (1.8-7.7); NEUTROPHILS % (AUTO) 50.2 % (42.2-75.2); PLATELET COUNT (AUTO) 292 K/uL (140-450); RED CELL DISTRIBUTION WIDTH 16.8 % (11.6-13.7); WHITE BLOOD COUNT (AUTO) 5.8 K/uL (4.8-10.8)
--- NOTE | 2018-12-27 07:10 | NUR ---
REPORT RECEIVED FROM NURSE RANJAN, PT SLEEPING AT THIS TIME, NO S/S OF ACUTE DISTRESS NOTED, CALL LIGHT AND PERSONAL ITEMS WITHIN EASY REACH, SAFETY MEASURES IN PLACE,SEIZURE AND FALL PRECAUTIONS IN PLACE WILL CONTINUE TO MONITOR.
--- NOTE | 2018-12-27 07:58 | NUR ---
PATIENT HAS BEEN SCREENED AND CATEGORIZED MODERATE NUTRITION RISK. PATIENT WILL BE SEEN WITHIN 3-5 DAYS OF ADMISSION. 12/29/18 12/31/[address]
[2018-12-27 08:00] VITALS: BP 166/84
--- NOTE | 2018-12-27 08:15 | NUR ---
PT AWAKE A/O ABLE TO COMMUNICATE NEEDS, PT CONTINUES TO COMPLAIN OF CHEST PAIN, TOLERABLE AT THIS TIME, DR RAINES DOING ROUNDS AND AWARE. DENIES SOB. CALL LIGHT AND PERSONAL ITEMS WITHIN EASY REACH, SAFETY MEASURES, SEIZURE AND FALL PRECAUTIONS IN PLACE, WILL CONTINUE TO MONITOR.
[2018-12-27] MEDS: ASPIRIN 81 MG TAB.CHEW PO SCH (09:52)
[2018-12-27] MEDS: CARVEDILOL 3.125 MG TAB PO SCH ×2 (09:52→20:44)
[2018-12-27] MEDS: LACTOBACILLUS RHAMNOSUS GG 1 EACH CAP PO SCH (09:53)
[2018-12-27] MEDS: HYDROCHLOROTHIAZIDE 25 MG TAB PO SCH (09:54)
[2018-12-27] MEDS: ATORVASTATIN 20 MG TAB PO SCH (09:54)
[2018-12-27] MEDS: LISINOPRIL 20 MG TAB PO SCH (09:54)
[2018-12-27] MEDS: KETOROLAC 15 MG/ML VIAL IVP PRN ×3 (09:55→23:41)
--- NOTE | 2018-12-27 11:15 | NUR ---
PT AWAKE A/O ABLE TO COMMUNICATE NEEDS, PT CONTINUES TO COMPLAIN OF INTERMITTENT CHEST PAIN, TOLERABLE AT THIS TIME, UNCHANGED IN CHARATER, DENIES SOB. CALL LIGHT AND PERSONAL ITEMS WITHIN EASY REACH, SAFETY MEASURES, SEIZURE AND FALL PRECAUTIONS IN PLACE, WILL CONTINUE TO MONITOR.
[2018-12-27] MEDS: NACL 0.9% 1,000 ML IV SCH (11:28)
[2018-12-27 12:00] VITALS: BP 133/72
--- NOTE | 2018-12-27 13:15 | NUR ---
SPOKE Dejan HAYDEN AT [facility] TO REQUEST RECORDS PER MD ORDER. PT REMAINS A/O ABLE TO COMMUNICATE NEEDS, CONSENT OBTAINED FROM PT AND FAXED TO NUMBER PROVIDED BY [employer]. CALL LIGHT AND PERSONAL ITEMS WITHIN EASY REACH, SAFETY MEASURES, SEIZURE AND FALL PRECAUTIONS IN PLACE, WILL CONTINUE TO MONITOR. Addendum: 12/27/18 at 1926 by Nurys Lopez RN SPOKE WITH ABELARDO AT [facility] GISELL HAYDEN
[2018-12-27 16:00] VITALS: BP 121/71
--- NOTE | 2018-12-27 16:15 | NUR ---
PT SLEEPING AT THIS TIME, APPEARS COMFORTABLE, NO S/S OF ACUTE DISTYRESS NOTED AT THID TIME, CALL LIGHT AND PERSONAL ITEMS WITHIN EASY REACH, SAFETY MEASURES, SEIZURE AND FALL PRECAUTIONS IN PLACE, WILL CONTINUE TO MONITOR.
[2018-12-27] MEDS: GABAPENTIN 300 MG CAP PO SCH (17:13)
--- NOTE | 2018-12-27 18:15 | NUR ---
PT REMAINS A/O ABLE TO COMMUNICATE NEEDS, CONTINUES TO C/O INTERMITTENT CHEST PAIN, TOLERABLE AT THIS TIME, ENCOURAGED REST AND DIVERSIONAL ACTIVITIES, CALL LIGHT AND PERSONAL ITEMS WITHIN EASY REACH, SAFETY MEASURES, SEIZURE AND FALL PRECAUTIONS IN PLACE, WILL CONTINUE TO MONITOR.
--- NOTE | 2018-12-27 19:20 | NUR ---
PT REMAINS A/O ABLE TO COMMUNICATE NEEDS, NO S/S OF ACUTE DISTRESS NOTED AT THIS TIME, CALL LIGHT AND PERSONAL ITEMS WITHIN EASY REACH, SAFETY MEASURES, SEIZURE AND FALL PRECAUTIONS IN PLACE, REPORT ENDORSED TO ONCOMING NURSE IBAN.
--- NOTE | 2018-12-27 19:22 | NUR ---
Received bedside report from AM nurse. Patient is sitting on bed. Awake, alert and oriented. Friend is at bedside. No SOB or distress noted. Pt is on room air. IV access on Right AC, patent, intact and asymptomatic. IVF of NS at 60ml/hr. Skin is intact. Pt is able to ambulate. Seizure and fall precautions in place. Bed in low. Call light within patient reach. Will continue to monitor pt.
[2018-12-27 20:20] VITALS: BP 143/80
--- NOTE | 2018-12-27 21:10 | NUR ---
Rounds done. Patient sitting on bed talking to room mate. Pt is stable, no distress noted. Will continue to monitor pt.
--- NOTE | 2018-12-27 23:42 | NUR ---
Pt given PRN Toradol for pain scale of 8/10 at this time.
[2018-12-28] VITALS: BP 130/69
--- NOTE | 2018-12-28 00:50 | NUR ---
Report given to MARTHA France for continuity of care. Pt is in stable condition, no distress noted.
--- NOTE | 2018-12-28 01:00 | NUR ---
PTRECIEVED AWAKE ALERT AND ORIENTED X3 . PT HAVE NO COMPLAIN OF CHEST PAIN OR ANY DESCOMFORT. LUNGS CLEAR AND INTACT PULSES PALPABLE.WILL CONTINUE TO MONITOR PT .
[2018-12-28] MEDS: NACL 0.9% 1,000 ML IV SCH (04:06)
--- NOTE | 2018-12-28 04:43 | NUR ---
VITAL SIGN STABLE . PT ON SINUS RYTHM .PT CONTINUE TO MONITOR PT FOR CHEST PAIN .
[2018-12-28 04:47] VITALS: BP 119/74
[2018-12-28] MEDS: KETOROLAC 15 MG/ML VIAL IVP PRN ×2 (06:09→14:12)
--- NOTE | 2018-12-28 07:10 | NUR ---
RECEIVED REPORT FROM [facility] CODERS NURSE. PATIENT IS IN BED, ASLEEP, ABLE TO WAKE. RESPIRATION EVEN AND UNLABORED. IV INTACT AND PATENT TO RAC IVF NS INFUSING AT 60ML/HR. TOLERATING WELL. DENIES SOB. SAFETY MEASURES IN PLACE. CALL LIGHT WITHIN REACH.
[2018-12-28 07:44] LABS: BASOPHILS % (AUTO) 0.4 % (0.0-2.0); EOSINOPHILS # (AUTO) 0.3 K/uL (0-0.4); EOSINOPHILS % (AUTO) 4.7 % (0.0-4.0); HEMATOCRIT 31.7 % (36-48); LYMPHOCYTES # (AUTO) 1.8 K/uL (2.5-16.5); MEAN CORPUSCULAR HEMOGLOBIN 24 pg (27-31); MEAN CORPUSCULAR HGB CONC 31 g/dL (33-37); MEAN CORPUSCULAR VOLUME 75.3 fL (80-94); MONOCYTES # (AUTO) 0.5 K/uL (0.8-1.0); MONOCYTES % (AUTO) 8.2 % (1.7-9.3); NEUTROPHILS % (AUTO) 53.7 % (42.2-75.2); PLATELET COUNT (AUTO) 268 K/uL (140-450); RED BLOOD CELL COUNT(AUTO) 4.21 MIL/uL (4.20-5.40); RED CELL DISTRIBUTION WIDTH 16.7 % (11.6-13.7); WHITE BLOOD COUNT (AUTO) 5.6 K/uL (4.8-10.8)
[2018-12-28 08:00] VITALS: BP 97/65
[2018-12-28] MEDS: CARVEDILOL 3.125 MG TAB PO SCH (09:00)
[2018-12-28] MEDS: LISINOPRIL 20 MG TAB PO SCH (09:00)
[2018-12-28] MEDS ORDERED: GABA-638 PO (09:06)
[2018-12-28] MEDS: ASPIRIN 81 MG TAB.CHEW PO SCH (09:45)
[2018-12-28] MEDS: LACTOBACILLUS RHAMNOSUS GG 1 EACH CAP PO SCH (09:48)
[2018-12-28] MEDS: GABAPENTIN 300 MG CAP PO SCH ×2 (09:48→14:12)
[2018-12-28] MEDS: ATORVASTATIN 20 MG TAB PO SCH (09:48)
[2018-12-28 09:50] LABS: MAGNESIUM 1.8 mg/dL (1.8-2.4)
[2018-12-28] MEDS: HYDROCHLOROTHIAZIDE 25 MG TAB PO SCH (09:50)
[2018-12-28 09:51] LABS: PHOSPHORUS 3.5 mg/dL (2.5-4.9)
[2018-12-28 09:52] LABS: ANION GAP 15.2 (8-16); CARBON DIOXIDE 24.5 mmol/L (21-32); POTASSIUM 3.7 mmol/L (3.5-5.1)
[2018-12-28 09:53] LABS: CREATININE 0.8 mg/dL (0.6-1.3)
--- NOTE | 2018-12-28 10:25 | NUR ---
PATIENT IS BED, AWAKE AND VERBALLY RESPONSIVE. AM MEDICATIONS GIVEN ORDERED. TOLERATED WELL.
[2018-12-28 12:00] VITALS: BP 148/54
--- NOTE | 2018-12-28 12:00 | NUR ---
PATIENT IS IN BED, EATING LUNCH. NO C/O PAIN OR DISCOMFORT. IV INTACT AND PATENT TO RAC. IVF NS INFUSING AT 60ML/HR. AMBULATED TO THE RESTROOM WITH NO DISTRESS.
[2018-12-28] MEDS ORDERED: BUS5 PO (13:52)
[2018-12-28] MEDS ORDERED: FERR325E14 PO (13:54)
[2018-12-28] MEDS ORDERED: IBUP-2213 PO (14:13)
--- NOTE | 2018-12-28 14:15 | NUR ---
PATIENT C/O PAIN 8/ TO CHEST AREA. DENIES ANY SOB BREATH. RESPIRATION EVEN AND UNLABORED. MEDICATED FOR PAIN AND TOLERATED WELL.
--- NOTE | 2018-12-28 17:50 | NUR ---
PATIENT IS DISCHARGED. DISCHARGED INSTRUCTIONS AND ALL BELONGINGS GIVEN. ALL NEEDS MET.
== END 2018-12-28 17:51 | disposition home or self-care (01) | DRG 203 ==
LOC: MED 16:18 → MTU 18:49 → MMU 19:20 → MTU 19:21 → MMU 19:25 → MTU 19:26
PROVIDERS: ADMIT General Practice; ATTEND General Practice
DX: M94.0 Chondrocostal junction syndrome [Tietze] (principal); D64.9 Anemia, unspecified; F41.1 Generalized anxiety disorder; E78.5 Hyperlipidemia, unspecified; E87.6 Hypokalemia; I10 Essential (primary) hypertension; I25.10 Atherosclerotic heart disease of native coronary artery without angina pectoris; E66.9 Obesity, unspecified; Z68.32 Body mass index [BMI] 32.0-32.9, adult; Z86.73 Personal history of transient ischemic attack (TIA), and cerebral infarction without residual deficits; I25.2 Old myocardial infarction; Z88.5 Allergy status to narcotic agent; Z88.0 Allergy status to penicillin; Z88.8 Allergy status to other drugs, medicaments and biological substances; Z98.51 Tubal ligation status
CPT/HCPCS: 36415; 70450; 71045; 80048; 80053; 80305; 81001; 81025; 83036; 83605; 83690; 83735; 83880; 84100; 84439; 84443; 84484; 85025; 85610; 85730; 87081; 93005; 96374; 99285; G0378; J1644; J1885; J2060; J7030; Q0092

== ENCOUNTER 2019-01-25 14:22 | Emergency (ER) | payer MEDICAID ==
[~2019-01-25] VITALS: Ht 152.4 cm; Wt 81.6 kg
[~2019-01-25 14:22] MED LIST changes: +BUS5 PO; -CLON0.2T43 PO; +FERR325E14 PO; +GABA-638 PO; +IBUP-2213 PO; +ORE25 PO
[2019-01-25 14:31] VITALS: BP 167/102
--- NOTE | 2019-01-25 14:41 | NUR ---
PT AMBULATED TO CHAIR
[2019-01-25] MEDS ORDERED: DEXAMETHASONE 10 MG/ML VIAL IM ONE (14:50)
--- NOTE | 2019-01-25 15:00 | NUR ---
Patient discharged with v/s stable. Written and verbal after care instructions given and explained. Patient alert, oriented and verbalized understanding of instructions. Ambulatory with steady gait. All questions addressed prior to discharge. ID band removed. Patient advised to follow up with PMD. Rx of ATARAX, HYDROCORTISONE CREAM given. Patient educated on indication of medication including possible reaction and side effects. Opportunity to ask questions provided and answered.
[2019-01-25 15:09] VITALS: BP 167/102
== END 2019-01-25 15:00 | disposition home or self-care (01) ==
LOC: MED 14:22
DX: S60.862A Insect bite (nonvenomous) of left wrist, initial encounter (principal); S60.861A Insect bite (nonvenomous) of right wrist, initial encounter; E11.9 Type 2 diabetes mellitus without complications; I10 Essential (primary) hypertension; F17.210 Nicotine dependence, cigarettes, uncomplicated; Z71.6 Tobacco abuse counseling; Z86.73 Personal history of transient ischemic attack (TIA), and cerebral infarction without residual deficits; Z79.899 Other long term (current) drug therapy; Z88.0 Allergy status to penicillin; Z88.5 Allergy status to narcotic agent; Z88.6 Allergy status to analgesic agent; W57.XXXA Bitten or stung by nonvenomous insect and other nonvenomous arthropods, initial encounter; Y93.89 Activity, other specified; Y92.89 Other specified places as the place of occurrence of the external cause; Y99.8 Other external cause status
CPT/HCPCS: 96372; 99283; J1100

== ENCOUNTER 2019-02-17 12:11 | Emergency (ER) | payer MEDICAID ==
[~2019-02-17] VITALS: Ht 162.6 cm; Wt 84.6 kg
--- NOTE | 2019-02-17 12:15 | NUR ---
PATIENT WAS WHEELCHAIR ASSISTED TO BED 2.
[2019-02-17 12:21] VITALS: BP 163/100
[2019-02-17] MEDS ORDERED: NACL 0.9% 1,000 ML IV ONE ×2 (12:35→15:35)
[2019-02-17] MEDS ORDERED: ONDANSETRON 4 MG/2 ML VIAL IVP ONE (12:35)
[2019-02-17] MEDS ORDERED: MECLIZINE 25 MG TAB PO ONE (12:35)
--- NOTE | 2019-02-17 12:37 | NUR ---
PT BIB DAUGHTER C/O FALL TODAY. PT WITH NAUSEA, DIZZINESS DESCRIBED "SPINNING" AND HEADACHE OF 10/10. DENIES LOC, VOMITING. UPON ASSESSMENT, PT AAOX4, PERRL 3MM, 5/5 STREGTH ON ALL EXTREMITIES. NOTED TO HAVE MINOR FACIAL DROOPING ON LEFT SIDE OF FACE.
--- NOTE | 2019-02-17 13:20 | NUR ---
Pt RECEIVED FROM NYDIA THOMAS . Transfer of care at this time.
[2019-02-17 13:22] LABS: BASOPHILS % (AUTO) 0.6 % (0.0-2.0); EOSINOPHILS # (AUTO) 0.2 K/uL (0-0.4); HEMATOCRIT 36.5 % (36-48); HEMOGLOBIN 11.7 g/dL (12.0-16.0); LYMPHOCYTES # (AUTO) 1.3 K/uL (2.5-16.5); LYMPHOCYTES % (AUTO) 27.4 % (20.5-51.1); MEAN CORPUSCULAR HEMOGLOBIN 24 pg (27-31); MEAN CORPUSCULAR HGB CONC 32 g/dL (33-37); MEAN CORPUSCULAR VOLUME 76.3 fL (80-94); MONOCYTES # (AUTO) 0.3 K/uL (0.8-1.0); MONOCYTES % (AUTO) 6.2 % (1.7-9.3); NEUTROPHILS # (AUTO) 2.9 K/uL (1.8-7.7); NEUTROPHILS % (AUTO) 61.8 % (42.2-75.2); PLATELET COUNT (AUTO) 306 K/uL (140-450); RED BLOOD CELL COUNT(AUTO) 4.78 MIL/uL (4.20-5.40); RED CELL DISTRIBUTION WIDTH 17.1 % (11.6-13.7); WHITE BLOOD COUNT (AUTO) 4.7 K/uL (4.8-10.8)
--- NOTE | 2019-02-17 13:33 | NUR ---
XRAY AT BEDSIDE
[2019-02-17 13:47] LABS: PROTHROMBIN TIME 9.4 secs (10.8-13.4)
[2019-02-17 13:59] LABS: ANION GAP 11.2 (8-16); CARBON DIOXIDE 28.1 mmol/L (21-32); CREATININE 0.7 mg/dL (0.6-1.3); POTASSIUM 3.3 mmol/L (3.5-5.1)
[2019-02-17 14:17] LABS: ALBUMIN 3.3 g/dL (3.4-5.0); TOTAL BILIRUBIN 0.2 mg/dL (0.0-1.0)
--- NOTE | 2019-02-17 15:57 | NUR ---
Pt laying in bed, daughter at bedside, reports r sided headache. pt awake and alert, reports same symptoms of minor r lower face droop, decreased sensation on r side of body. all needs met at this time.
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
--- NOTE | 2019-02-17 16:03 | NUR ---
PT AMBULATED TO RESTROOM WITH STEADY GAIT, WITH STANDBY ASSIST BY DAUGHTER, PT REPORTS DIZZINESS WHEN AMBULATING.
[2019-02-17 16:10] VITALS: BP 150/94
--- NOTE | 2019-02-17 16:10 | NUR ---
PATIENT TRANSFERED BY EMR
--- NOTE | 2019-03-02 14:35 | NUR ---
Late entry. Confirmed with RN that 0.9 NS IV completed at 1420. Another 0.9 NS IV ended at 1610
== END 2019-02-17 16:10 | disposition short-term general hospital (02) ==
LOC: MED 12:11
DX: R42 Dizziness and giddiness (principal); R20.0 Anesthesia of skin; R29.818 Other symptoms and signs involving the nervous system; I10 Essential (primary) hypertension; Z86.73 Personal history of transient ischemic attack (TIA), and cerebral infarction without residual deficits; Z86.69 Personal history of other diseases of the nervous system and sense organs; Z98.51 Tubal ligation status; Z98.890 Other specified postprocedural states; Z79.899 Other long term (current) drug therapy; Z79.1 Long term (current) use of non-steroidal anti-inflammatories (NSAID); Z88.0 Allergy status to penicillin; Z88.6 Allergy status to analgesic agent; Z88.5 Allergy status to narcotic agent
CPT/HCPCS: 36415; 70450; 70496; 70498; 71045; 80053; 81002; 81025; 82948; 84484; 85025; 85610; 85730; 86886; 86900; 86901; 93005; 96361; 96374; 99285; J2405; J7030; J8597; Q0092; Q9967

== ENCOUNTER 2019-07-05 19:20 | Emergency (ER) | payer MEDICAID ==
[~2019-07-05] VITALS: Ht 152.4 cm; Wt 80.3 kg
[2019-07-05 19:32] VITALS: BP 120/87
--- NOTE | 2019-07-05 19:40 | NUR ---
PT AMBULATED TO CHAIR A, STEADY GAIT.
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
--- NOTE | 2019-07-05 19:57 | NUR ---
PT TAKEN TO XRAY
--- NOTE | 2019-07-05 20:00 | NUR ---
PT RERUNED FROM XDx
--- NOTE | 2019-07-05 20:35 | NUR ---
Dr. Perez examining patient.
--- NOTE | 2019-07-05 20:37 | NUR ---
MD REN SPEAKING WITH PT
[2019-07-05 20:39] VITALS: BP 120/87
== END 2019-07-05 20:39 | disposition home or self-care (01) ==
LOC: MED 19:20
DX: S20.20XA Contusion of thorax, unspecified, initial encounter (principal); I10 Essential (primary) hypertension; Z86.73 Personal history of transient ischemic attack (TIA), and cerebral infarction without residual deficits; Z79.899 Other long term (current) drug therapy; Z88.0 Allergy status to penicillin; Z88.5 Allergy status to narcotic agent; Z88.8 Allergy status to other drugs, medicaments and biological substances; Z98.890 Other specified postprocedural states; Y04.2XXA Assault by strike against or bumped into by another person, initial encounter; Y93.89 Activity, other specified; Y92.89 Other specified places as the place of occurrence of the external cause; Y99.8 Other external cause status
CPT/HCPCS: 71101; 99283

== ENCOUNTER 2020-11-05 01:04 | Emergency (ER) | payer MEDICAID ==
[~2020-11-05] VITALS: Ht 160 cm; Wt 77.1 kg
[~2020-11-05 01:04] MED LIST changes: +HYDR-4004 PO; -LISI-420 PO; +LISI-487 PO; -ORE25 PO
[2020-11-05 01:20] VITALS: BP 102/58
--- NOTE | 2020-11-05 01:23 | NUR ---
TO LOBBY A/W BED AMBULATORY
--- NOTE | 2020-11-05 01:50 | NUR ---
SEEN AND EXAMINED BY TRACE , WITH ORDERS, CARRIED OUT
[2020-11-05] MEDS ORDERED: NITROGLYCERIN 0.4 MG TAB SL ONE (01:55)
[2020-11-05] MEDS ORDERED: ASPIRIN 325 MG TAB PO ONE (01:55)
[2020-11-05 02:13] LABS: BASOPHILS % (AUTO) 0.3 % (0.0-2.0); EOSINOPHILS # (AUTO) 0.1 K/uL (0-0.4); EOSINOPHILS % (AUTO) 0.5 % (0.0-4.0); HEMATOCRIT 36.5 % (36-48); HEMOGLOBIN 11.9 g/dL (12.0-16.0); LYMPHOCYTES # (AUTO) 1.9 K/uL (2.5-16.5); LYMPHOCYTES % (AUTO) 16.8 % (20.5-51.1); MEAN CORPUSCULAR HEMOGLOBIN 26 pg (27-31); MEAN CORPUSCULAR HGB CONC 33 g/dL (33-37); MEAN CORPUSCULAR VOLUME 79.6 fL (80-94); MONOCYTES # (AUTO) 0.5 K/uL (0.8-1.0); MONOCYTES % (AUTO) 4.7 % (1.7-9.3); NEUTROPHILS # (AUTO) 8.7 K/uL (1.8-7.7); NEUTROPHILS % (AUTO) 77.7 % (42.2-75.2); PLATELET COUNT (AUTO) 406 K/uL (140-450); RED BLOOD CELL COUNT(AUTO) 4.58 MIL/uL (4.20-5.40); WHITE BLOOD COUNT (AUTO) 11.1 K/uL (4.8-10.8)
--- NOTE | 2020-11-05 02:25 | NUR ---
MEDICATED PER ERMDS ORDER, TOLERATED WELL
[2020-11-05 02:28] LABS: ALBUMIN 3.7 g/dL (3.4-5.0); ANION GAP 10.1 (8-16); CARBON DIOXIDE 28.5 mmol/L (21-32); CREATININE 1.3 mg/dL (0.6-1.3); POTASSIUM 3.6 mmol/L (3.5-5.1); TOTAL BILIRUBIN 0.2 mg/dL (0.0-1.0)
--- NOTE | 2020-11-05 04:00 | NUR ---
ALL RESULTS BACK AND NOTED BY ERMD AND FOR D/C
[2020-11-05 04:05] VITALS: BP 118/67
== END 2020-11-05 04:05 | disposition home or self-care (01) ==
LOC: MED 01:04
DX: R07.9 Chest pain, unspecified (principal); R42 Dizziness and giddiness; R00.2 Palpitations; I10 Essential (primary) hypertension; Z88.0 Allergy status to penicillin; Z88.5 Allergy status to narcotic agent; Z88.6 Allergy status to analgesic agent; Z79.899 Other long term (current) drug therapy; Z86.73 Personal history of transient ischemic attack (TIA), and cerebral infarction without residual deficits
CPT/HCPCS: 36415; 71045; 80053; 84484; 85025; 93005; 99285

== ENCOUNTER 2022-12-17 00:15 | Emergency (ER) | payer MEDICAID ==
[~2022-12-17] VITALS: Ht 152.4 cm; Wt 79.4 kg
[2022-12-17 00:23] VITALS: BP 136/92; PULSE 81; RESP 16; TEMP 95; O2SAT 98
[2022-12-17 02:01] LABS: APPEARANCE,URINE CLEAR (CLEAR); BILIRUBIN,URINE NEGATIVE (NEGATIVE); BLOOD, URINE NEGATIVE (NEGATIVE); COLOR,URINE YELLOW (YELLOW); LEUKOCYTE ESTERASE ,URINE NEGATIVE (NEGATIVE); NITRITE, URINE NEGATIVE (NEGATIVE); PROTEIN,URINE NEGATIVE (NEGATIVE); UGLUCOSE 3+ (NEGATIVE); UROBILINOGEN,URINE 0.2 EU/dL (0.2 - 1)
[2022-12-17 02:12] LABS: BASOPHILS # (AUTO) 0.1 K/uL (0.00-0.22); BASOPHILS % (AUTO) 0.8 % (0.0-2.0); EOSINOPHILS # (AUTO) 0.2 K/uL (0-0.4); HEMATOCRIT 35.1 % (36-48); HEMOGLOBIN 11.8 g/dL (12.0-16.0); LYMPHOCYTES # (AUTO) 2.2 K/uL (2.5-16.5); LYMPHOCYTES % (AUTO) 35.8 % (20.5-51.1); MEAN CORPUSCULAR HEMOGLOBIN 27 pg (27-31); MEAN CORPUSCULAR HGB CONC 34 g/dL (33-37); MEAN CORPUSCULAR VOLUME 80.6 fL (80-94); MONOCYTES # (AUTO) 0.3 K/uL (0.8-1.0); MONOCYTES % (AUTO) 5.7 % (1.7-9.3); NEUTROPHILS # (AUTO) 3.3 K/uL (1.8-7.7); NEUTROPHILS % (AUTO) 53.7 % (42.2-75.2); PLATELET COUNT (AUTO) 208 K/uL (140-450); RED BLOOD CELL COUNT(AUTO) 4.35 MIL/uL (4.20-5.40); RED CELL DISTRIBUTION WIDTH 16.2 % (11.6-13.7); WHITE BLOOD COUNT (AUTO) 6.1 K/uL (4.8-10.8)
[2022-12-17 02:27] LABS: ALANINE AMINOTRANSFERASE 44 U/L (12-78); ALBUMIN 3.1 g/dL (3.4-5.0); ALKALINE PHOSPHATASE 93 U/L (50-136); ANION GAP 11.5 (8-16); ASPARTATE AMINOTRANSFERASE 22 U/L (15-37); CALCIUM 8.4 mg/dL (8.5-10.1); CHLORIDE 94 mmol/L (98-107); CREATININE 1.1 mg/dL (0.6-1.3); GFR ARICAN-AMERICAN 67 mL/min (>90); GFR NON ARICAN-AMERICAN 55 mL/min (>90); LIPASE 67 U/L (16-77); POTASSIUM 3.5 mmol/L (3.5-5.1); SODIUM SERUM 132 mmol/L (136-145); TOTAL BILIRUBIN 0.2 mg/dL (0.0-1.0); TOTAL PROTEIN, SERUM 6.8 g/dL (6.4-8.2); UREA NITROGEN, BLOOD 10 mg/dL (7-18)
[2022-12-17 02:29] LABS: GLUCOSE 534 mg/dL (74-106)
[2022-12-17] MEDS ORDERED: NACL 0.9% 1,000 ML IV ONE (02:35)
[2022-12-17] MEDS ORDERED: INSULIN REGULAR, HUMAN 100 UNIT/ML VIAL IVP ONE (02:35)
[2022-12-17] MEDS ORDERED: FLUCONAZOLE 100 MG TAB PO ONE (05:35)
[2022-12-17 05:47] VITALS: BP 136/92; PULSE 81; RESP 16; O2SAT 98
== END 2022-12-17 05:47 | disposition home or self-care (01) ==
LOC: MED 00:15
DX: E11.65 Type 2 diabetes mellitus with hyperglycemia (principal); D64.9 Anemia, unspecified; B37.31 Acute candidiasis of vulva and vagina; I10 Essential (primary) hypertension; E78.00 Pure hypercholesterolemia, unspecified; Z86.73 Personal history of transient ischemic attack (TIA), and cerebral infarction without residual deficits; Z86.69 Personal history of other diseases of the nervous system and sense organs; Z98.890 Other specified postprocedural states; Z79.899 Other long term (current) drug therapy; Z79.1 Long term (current) use of non-steroidal anti-inflammatories (NSAID); Z88.0 Allergy status to penicillin; Z88.8 Allergy status to other drugs, medicaments and biological substances; Z88.5 Allergy status to narcotic agent
CPT/HCPCS: 36415; 71045; 74176; 80053; 81003; 83690; 84484; 85025; 93005; 96361; 96374; 99285; J1815; J7030

== ENCOUNTER 2022-12-20 02:03 | Emergency (ER) | payer MEDICAID ==
[~2022-12-20] VITALS: Ht 154.9 cm; Wt 81.6 kg
[2022-12-20 02:08] VITALS: BP 123/88; PULSE 82; RESP 17; TEMP 97.8; O2SAT 98
[2022-12-20] MEDS ORDERED: NACL 0.9% 2,000 ML IV ONE (06:30)
[2022-12-20 06:46] LABS: APPEARANCE,URINE CLEAR (CLEAR); BILIRUBIN,URINE NEGATIVE (NEGATIVE); BLOOD, URINE NEGATIVE (NEGATIVE); COLOR,URINE YELLOW (YELLOW); LEUKOCYTE ESTERASE ,URINE NEGATIVE (NEGATIVE); NITRITE, URINE NEGATIVE (NEGATIVE); PH,URINE 5.5 (5.0-9.0); PROTEIN,URINE NEGATIVE (NEGATIVE); UGLUCOSE 3+ (NEGATIVE); UROBILINOGEN,URINE 0.2 EU/dL (0.2 - 1)
[2022-12-20 07:10] LABS: BASOPHILS # (AUTO) 0.1 K/uL (0.00-0.22); BASOPHILS % (AUTO) 1.1 % (0.0-2.0); EOSINOPHILS # (AUTO) 0.3 K/uL (0-0.4); EOSINOPHILS % (AUTO) 3.8 % (0.0-4.0); HEMOGLOBIN 13.4 g/dL (12.0-16.0); LYMPHOCYTES % (AUTO) 33.5 % (20.5-51.1); MEAN CORPUSCULAR HEMOGLOBIN 27 pg (27-31); MEAN CORPUSCULAR HGB CONC 33 g/dL (33-37); MEAN CORPUSCULAR VOLUME 80.4 fL (80-94); MONOCYTES # (AUTO) 0.6 K/uL (0.8-1.0); MONOCYTES % (AUTO) 6.7 % (1.7-9.3); NEUTROPHILS % (AUTO) 54.9 % (42.2-75.2); PLATELET COUNT (AUTO) 338 K/uL (140-450); RED BLOOD CELL COUNT(AUTO) 4.97 MIL/uL (4.20-5.40); RED CELL DISTRIBUTION WIDTH 15.8 % (11.6-13.7); WHITE BLOOD COUNT (AUTO) 9.1 K/uL (4.8-10.8)
[2022-12-20 07:49] LABS: ANION GAP 12.6 (8-16); CALCIUM 10.2 mg/dL (8.5-10.1); CARBON DIOXIDE 31.3 mmol/L (21-32); CREATININE 1.2 mg/dL (0.6-1.3); POTASSIUM 3.9 mmol/L (3.5-5.1)
[2022-12-20 08:35] VITALS: BP 123/88; PULSE 82; RESP 17; TEMP 97.8; O2SAT 98
== END 2022-12-20 08:33 | disposition home or self-care (01) ==
LOC: MED 02:03
DX: E11.65 Type 2 diabetes mellitus with hyperglycemia (principal); I10 Essential (primary) hypertension; E78.00 Pure hypercholesterolemia, unspecified; Z86.69 Personal history of other diseases of the nervous system and sense organs; Z86.73 Personal history of transient ischemic attack (TIA), and cerebral infarction without residual deficits; Z79.899 Other long term (current) drug therapy; Z79.1 Long term (current) use of non-steroidal anti-inflammatories (NSAID); Z88.0 Allergy status to penicillin; Z88.8 Allergy status to other drugs, medicaments and biological substances; Z88.5 Allergy status to narcotic agent
CPT/HCPCS: 36415; 80048; 81003; 82009; 85025; 96360; 99283; J7030